=== PATIENT | female | born 1960 | race Caucasian/White ===

== ENCOUNTER → 2017-05-26 | Outpatient (CLI) | payer OTHER, SELFPAY ==
[~2017-05-26] MED LIST: ACET325 PO; ASCO500 PO; DOCU100 PO; DULO30 PO; GABA300; GABA600 PO; HYDR-86 PO; MELA3 PO; METO10 PO; Non-Pseudo Sinu10 MG PO; Norco 5-325 Ta1 EACH PO; ONDA4 PO; ONDA4ODT; Phillips'400 MG/5 M PO; St. John's Wor300 MG PO; Stool Softener100 MG PO; TRAZ50 PO; [UNRECOGNIZED DRUG - OTHER] PO; [UNRECOGNIZED DRUG - REMARK]
[2017-05-26 16:04] LABS: Albumin, Blood 3.3 g/dL (3.4-5.0); Albumin/Globulin Ratio 0.9 (0.8-1.8); Bilirubin, Total 0.5 mg/dL (0.1-1.0); Bun/Creatinine Ratio 8.8 (12.0-20.0); Calcium, Blood 8.8 mg/dL (8.5-10.1); Creatinine, Blood 1.02 mg/dL (0.40-1.00); Globulin, Blood 3.8 g/dL (2.2-4.0); Potassium, Blood 4.2 mmol/L (3.5-5.5); Total Protein, Blood 7.1 g/dL (6.4-8.2)
== END | disposition home or self-care (01) ==
LOC: LAB EV 15:50
PROVIDERS: Physician Assistant Surgical
DX: B35.9 Dermatophytosis, unspecified (principal)
CPT/HCPCS: 80053

== ENCOUNTER 2017-08-11 00:46 | Observation (INO) | payer OTHER ==
[~2017-08-11] VITALS: Ht 172.7 cm; Wt 103.4 kg
[~2017-08-11 00:46] MED LIST changes: -ACET325 PO; -ASCO500 PO; -DOCU100 PO; -DULO30 PO; -GABA300; -GABA600 PO; -HYDR-86 PO; -MELA3 PO; -METO10 PO; -Non-Pseudo Sinu10 MG PO; -ONDA4 PO; -ONDA4ODT; -Phillips'400 MG/5 M PO; -St. John's Wor300 MG PO; -Stool Softener100 MG PO; -TRAZ50 PO; -[UNRECOGNIZED DRUG - OTHER] PO; -[UNRECOGNIZED DRUG - REMARK]
[2017-08-11] MEDS ORDERED: ASCO500 PO (01:14)
[2017-08-11] MEDS ORDERED: St. John's Wor300 MG PO (01:14)
[2017-08-11 01:48] LABS: BASOPHILS ABSOLUTE AUTO 0.04 K/mm3 (0.00-0.23); BASOPHILS PERCENT AUTO 0 % (0-2); EOSINOPHILS ABSOLUTE AUTO 0.43 K/mm3 (0.00-0.68); EOSINOPHILS PERCENT AUTO 4 % (0-6); Hemoglobin 7.3 g/dL (11.5-16.0); IMMATURE GRAN ABSOLUTE AUTO 0.05 K/mm3 (0.00-0.10); IMMATURE GRAN PERCENT AUTO 1 % (0-1); LYMPHOCYTES ABSOLUTE AUTO 1.58 K/mm3 (0.84-5.20); LYMPHOCYTES PERCENT AUTO 14 % (21-46); MONOCYTES ABSOLUTE AUTO 0.46 K/mm3 (0.16-1.47); MONOCYTES PERCENT AUTO 4 % (4-13); Mean Corpuscular HGB 18.3 pg (26.0-34.0); Mean Corpuscular Volume 68 fL (80-100); Mean Platelet Volume 9.2 fL (9.1-12.4); NEUTROPHILS ABSOLUTE AUTO 8.46 K/mm3 (1.96-9.15); NEUTROPHILS PERCENT AUTO 77 % (41-73); Platelet Count 501 K/mm3 (150-400); RDW Coefficient Variation 19.9 % (11.7-14.2); RDW Standard Deviation 47.5 fL (35.1-46.3); Red Blood Cell Count 3.98 M/mm3 (3.80-5.20); White Blood Cell Count 11.02 K/mm3 (4.00-11.30)
[2017-08-11 02:09] LABS: Alanine Aminotransfer (ALT/SGP 17 U/L (12-78); Albumin, Blood 2.7 g/dL (3.4-5.0); Albumin/Globulin Ratio 0.6 (0.8-1.8); Alk Phos 96 U/L (50-136); Anion Gap 9 mmol/L (6-16); Aspartate Aminotrans (AST/SGOT 15 U/L (12-37); Bilirubin, Total 0.2 mg/dL (0.1-1.0); Blood Urea Nitrogen 15 mg/dL (8-24); Bun/Creatinine Ratio 16.1 (12.0-20.0); CO2, Blood 23 mmol/L (21-32); Calcium, Blood 8.5 mg/dL (8.5-10.1); Chloride, Blood 109 mmol/L (98-108); Creatinine, Blood 0.93 mg/dL (0.40-1.00); Globulin, Blood 4.3 g/dL (2.2-4.0); Glomerular Filtration Rate >60 (60-); Glucose, Blood 117 mg/dL (70-99); Potassium, Blood 3.8 mmol/L (3.5-5.5); Sodium, Blood 141 mmol/L (136-145); Troponin I <0.015 ng/mL (0.000-0.040)
[2017-08-11 03:03] LABS: Source, Urine Clean Catch
[2017-08-11 03:05] LABS: Bilirubin, Urine Neg (Neg); Blood, Urine Neg (Neg); Glucose Qualitative, Urine Neg (Neg); Ketones, Urine Neg (Neg); Leukocyte Esterase, Urine 1+ (Neg); Nitrite, Urine Neg (Neg); Protein, Urine Neg (Neg); Specific Gravity, Urine 1.015 (1.003-1.022); Urobilinogen, Urine NORM (Normal)
[2017-08-11 03:14] LABS: Appearance, Urine Clear (Clear); Bacteria Not Seen /hpf; Color, Urine Yellow (P-Yellow); Red Blood Cells, Urine Not Seen /hpf (0-2); Squamous Epithelial Cells Rare /hpf (Few); White Blood Cells, Urine Rare /hpf (0-5)
[2017-08-11 03:15] LABS: Mucus Light (0-Heavy)
[2017-08-11 04:37] LABS: RETICULOCYTE COUNT PERCENT 2.54 % (0.50-2.50)
[2017-08-11 04:54] LABS: Percent Saturation 6.5 % (15.0-50.0)
[2017-08-11 05:25] LABS: BASOPHILS ABSOLUTE AUTO 0.05 K/mm3 (0.00-0.23); BASOPHILS PERCENT AUTO 0 % (0-2); EOSINOPHILS ABSOLUTE AUTO 0.43 K/mm3 (0.00-0.68); EOSINOPHILS PERCENT AUTO 3 % (0-6); Hematocrit 28.4 % (33.0-51.0); Hemoglobin 7.7 g/dL (11.5-16.0); IMMATURE GRAN ABSOLUTE AUTO 0.08 K/mm3 (0.00-0.10); IMMATURE GRAN PERCENT AUTO 1 % (0-1); LYMPHOCYTES ABSOLUTE AUTO 1.55 K/mm3 (0.84-5.20); LYMPHOCYTES PERCENT AUTO 11 % (21-46); MONOCYTES ABSOLUTE AUTO 0.66 K/mm3 (0.16-1.47); MONOCYTES PERCENT AUTO 5 % (4-13); Mean Corpuscular HGB 18.2 pg (26.0-34.0); Mean Corpuscular HGB Conc 27.1 g/dL (31.5-36.5); Mean Corpuscular Volume 67 fL (80-100); Mean Platelet Volume 9.4 fL (9.1-12.4); NEUTROPHILS PERCENT AUTO 80 % (41-73); Platelet Count 410 K/mm3 (150-400); RDW Coefficient Variation 19.9 % (11.7-14.2); RDW Standard Deviation 46.9 fL (35.1-46.3); Red Blood Cell Count 4.22 M/mm3 (3.80-5.20); White Blood Cell Count 13.97 K/mm3 (4.00-11.30)
[2017-08-11 06:30] LABS: Alanine Aminotransfer (ALT/SGP 16 U/L (12-78); Albumin, Blood 2.7 g/dL (3.4-5.0); Albumin/Globulin Ratio 0.7 (0.8-1.8); Alk Phos 98 U/L (50-136); Anion Gap 7 mmol/L (6-16); Aspartate Aminotrans (AST/SGOT 15 U/L (12-37); Bilirubin, Total 0.3 mg/dL (0.1-1.0); Blood Urea Nitrogen 13 mg/dL (8-24); Bun/Creatinine Ratio 14.2 (12.0-20.0); CO2, Blood 25 mmol/L (21-32); Calcium, Blood 8.2 mg/dL (8.5-10.1); Chloride, Blood 108 mmol/L (98-108); Creatinine, Blood 0.91 mg/dL (0.40-1.00); Globulin, Blood 4.1 g/dL (2.2-4.0); Glomerular Filtration Rate >60 (60-); Glucose, Blood 110 mg/dL (70-99); Potassium, Blood 4.1 mmol/L (3.5-5.5); Sodium, Blood 140 mmol/L (136-145); Total Protein, Blood 6.8 g/dL (6.4-8.2)
[2017-08-13 05:58] LABS: BASOPHILS ABSOLUTE AUTO 0.03 K/mm3 (0.00-0.23); BASOPHILS PERCENT AUTO 0 % (0-2); EOSINOPHILS PERCENT AUTO 5 % (0-6); Hematocrit 28.3 % (33.0-51.0); Hemoglobin 7.7 g/dL (11.5-16.0); IMMATURE GRAN ABSOLUTE AUTO 0.05 K/mm3 (0.00-0.10); IMMATURE GRAN PERCENT AUTO 1 % (0-1); LYMPHOCYTES ABSOLUTE AUTO 1.93 K/mm3 (0.84-5.20); LYMPHOCYTES PERCENT AUTO 20 % (21-46); MONOCYTES ABSOLUTE AUTO 0.71 K/mm3 (0.16-1.47); MONOCYTES PERCENT AUTO 7 % (4-13); Mean Corpuscular HGB 18.5 pg (26.0-34.0); Mean Corpuscular HGB Conc 27.2 g/dL (31.5-36.5); Mean Corpuscular Volume 68 fL (80-100); Mean Platelet Volume 9.3 fL (9.1-12.4); NEUTROPHILS ABSOLUTE AUTO 6.35 K/mm3 (1.96-9.15); NEUTROPHILS PERCENT AUTO 66 % (41-73); Platelet Count 432 K/mm3 (150-400); RDW Coefficient Variation 20.9 % (11.7-14.2); Red Blood Cell Count 4.16 M/mm3 (3.80-5.20); White Blood Cell Count 9.57 K/mm3 (4.00-11.30)
[2017-08-13 06:15] LABS: Anion Gap 9 mmol/L (6-16); Blood Urea Nitrogen 8 mg/dL (8-24); Bun/Creatinine Ratio 9.4 (12.0-20.0); CO2, Blood 26 mmol/L (21-32); Calcium, Blood 8.6 mg/dL (8.5-10.1); Chloride, Blood 105 mmol/L (98-108); Creatinine, Blood 0.85 mg/dL (0.40-1.00); Glomerular Filtration Rate >60 (60-); Glucose, Blood 87 mg/dL (70-99); Sodium, Blood 140 mmol/L (136-145)
[2017-08-13] MEDS ORDERED: DOCU100 PO (11:00)
[2017-08-13] MEDS ORDERED: Phillips'400 MG/5 M PO (11:01)
[2017-08-23] MEDS ORDERED: MELA3 PO (16:44)
[2017-08-23] MEDS ORDERED: Stool Softener100 MG PO (16:45)
== END 2017-08-13 15:05 | disposition home or self-care (01) ==
LOC: ER 00:46 → MEDS 00:47 → ER 04:02 → MEDS 04:02 → ENPENDDIS 08-13 10:00 → MEDS 08-13 15:05
PROVIDERS: Emergency Medicine; Internal Medicine; Internal Medicine Gastroenterology
PROC: 0DBL8ZZ Excision of Transverse Colon, Via Natural or Artificial Opening Endoscopic (ICD-10-PCS; principal; 2017-08-12 11:00)
PROC: 0DBM8ZZ Excision of Descending Colon, Via Natural or Artificial Opening Endoscopic (ICD-10-PCS; principal; 2017-08-12 11:00)
DX: C18.4 Malignant neoplasm of transverse colon (principal); K63.5 Polyp of colon; K57.30 Diverticulosis of large intestine without perforation or abscess without bleeding; K64.8 Other hemorrhoids; D50.9 Iron deficiency anemia, unspecified; Z88.0 Allergy status to penicillin; Z91.040 Latex allergy status; Z88.8 Allergy status to other drugs, medicaments and biological substances; Z23 Encounter for immunization
CPT/HCPCS: 36415; 36430; 74177; 80048; 80053; 81001; 82378; 82728; 83540; 83550; 83605; 83690; 84484; 85025; 85045; 86850; 86900; 86901; 86920; 86923; 88305; 88341; 88342; 96361; 96374; 96375; 99285; C9113; G0008; G0378; J2405; J7030; J7120; P9016; Q2038; Q9967

== ENCOUNTER 2017-08-28 05:52 | Day surgery (SDC) | payer OTHER ==
[~2017-08-28] VITALS: Ht 172.7 cm; Wt 98.9 kg
[~2017-08-28 05:52] MED LIST changes: +ASCO500 PO; +DOCU100 PO; +MELA3 PO; +Phillips'400 MG/5 M PO; +St. John's Wor300 MG PO; +Stool Softener100 MG PO
[2017-08-28] MEDS ORDERED: ACET325 PO (06:38)
[2017-08-28] MEDS ORDERED: [UNRECOGNIZED DRUG - OTHER] PO (06:38)
[2017-08-28] MEDS ORDERED: [UNRECOGNIZED DRUG - REMARK] (06:39)
== END 2017-08-28 22:47 | disposition home or self-care (01) ==
LOC: ORSCMMR 05:52 → ORD 07:30 → ORSCMMR 22:47
PROVIDERS: Surgery
PROC: 0JH60WZ Insertion of Totally Implantable Vascular Access Device into Chest Subcutaneous Tissue and Fascia, Open Approach (ICD-10-PCS; principal; 2017-08-28 07:30)
DX: C18.4 Malignant neoplasm of transverse colon (principal); C77.2 Secondary and unspecified malignant neoplasm of intra-abdominal lymph nodes; C78.6 Secondary malignant neoplasm of retroperitoneum and peritoneum
CPT/HCPCS: 77001; 87081; C1788; J1642; J2250; J3010; J7120

== ENCOUNTER 2017-09-26 17:44 | Emergency (ER) | payer OTHER ==
[~2017-09-26] VITALS: Ht 172.7 cm; Wt 94.3 kg
[~2017-09-26 17:44] MED LIST changes: +ACET325 PO; +[UNRECOGNIZED DRUG - OTHER] PO; +[UNRECOGNIZED DRUG - REMARK]
[2017-09-26 18:52] LABS: BASOPHILS ABSOLUTE AUTO 0.03 K/mm3 (0.00-0.23); BASOPHILS PERCENT AUTO 1 % (0-2); EOSINOPHILS ABSOLUTE AUTO 0.27 K/mm3 (0.00-0.68); EOSINOPHILS PERCENT AUTO 5 % (0-6); Hematocrit 38.3 % (33.0-51.0); IMMATURE GRAN ABSOLUTE AUTO 0.01 K/mm3 (0.00-0.10); IMMATURE GRAN PERCENT AUTO 0 % (0-1); LYMPHOCYTES ABSOLUTE AUTO 1.56 K/mm3 (0.84-5.20); LYMPHOCYTES PERCENT AUTO 30 % (21-46); MONOCYTES ABSOLUTE AUTO 0.45 K/mm3 (0.16-1.47); MONOCYTES PERCENT AUTO 9 % (4-13); Mean Corpuscular HGB 24.6 pg (26.0-34.0); Mean Corpuscular HGB Conc 31.3 g/dL (31.5-36.5); Mean Corpuscular Volume 79 fL (80-100); NEUTROPHILS ABSOLUTE AUTO 2.81 K/mm3 (1.96-9.15); NEUTROPHILS PERCENT AUTO 55 % (41-73); NRBC ABSOLUTE 0.02 K/mm3 (0.00-0.02); NRBC Auto 0.4 /100 WBC (0.0-0.2); Platelet Count 222 K/mm3 (150-400); RDW Coefficient Variation 28.1 % (11.7-14.2); Red Blood Cell Count 4.87 M/mm3 (3.80-5.20); White Blood Cell Count 5.13 K/mm3 (4.00-11.30)
[2017-09-26] MEDS ORDERED: ONDA4 PO (18:59)
[2017-09-26] MEDS ORDERED: St. John's Wor300 MG PO (18:59)
[2017-09-26 19:14] LABS: Alanine Aminotransfer (ALT/SGP 61 U/L (12-78); Albumin, Blood 3.6 g/dL (3.4-5.0); Albumin/Globulin Ratio 0.8 (0.8-1.8); Alk Phos 154 U/L (50-136); Anion Gap 9 mmol/L (6-16); Aspartate Aminotrans (AST/SGOT 59 U/L (12-37); Bilirubin, Total 0.3 mg/dL (0.1-1.0); Blood Urea Nitrogen 13 mg/dL (8-24); Bun/Creatinine Ratio 14.3 (12.0-20.0); CO2, Blood 22 mmol/L (21-32); Calcium, Blood 9.3 mg/dL (8.5-10.1); Chloride, Blood 108 mmol/L (98-108); Creatinine, Blood 0.91 mg/dL (0.40-1.00); Globulin, Blood 4.4 g/dL (2.2-4.0); Glomerular Filtration Rate >60 (60-); Glucose, Blood 135 mg/dL (70-99); Potassium, Blood 3.6 mmol/L (3.5-5.5); Sodium, Blood 139 mmol/L (136-145); Troponin I <0.015 ng/mL (0.000-0.040)
[2017-09-26 21:33] LABS: Source, Urine Clean Catch
[2017-09-26 21:41] LABS: Bilirubin, Urine Neg (Neg); Blood, Urine Neg (Neg); Glucose Qualitative, Urine Neg (Neg); Ketones, Urine Neg (Neg); Leukocyte Esterase, Urine 2+ (Neg); Nitrite, Urine Neg (Neg); Protein, Urine 1+ (Neg); Specific Gravity, Urine 1.025 (1.003-1.022); Urobilinogen, Urine NORM (Normal)
[2017-09-26 21:48] LABS: Appearance, Urine Hazy (Clear); Color, Urine Yellow (P-Yellow); White Blood Cells, Urine 0-2 /hpf (0-5)
[2017-09-26 21:49] LABS: Amorphous Light ([, 0-Heavy]); Bacteria Few /hpf; Calcium Oxalate Crystals Mod /hpf; Hyaline Casts 0-2 /lpf (0-2); Mucus Light ([, 0-Heavy]); Red Blood Cells, Urine Not Seen /hpf (0-2); Squamous Epithelial Cells Rare /hpf (Few)
== END 2017-09-26 22:49 | disposition home or self-care (01) ==
LOC: ER 17:44
PROVIDERS: Emergency Medicine
DX: I95.1 Orthostatic hypotension (principal); Z91.048 Other nonmedicinal substance allergy status; Z88.0 Allergy status to penicillin; Z88.8 Allergy status to other drugs, medicaments and biological substances; Z91.040 Latex allergy status; Z79.899 Other long term (current) drug therapy
CPT/HCPCS: 36415; 71046; 80053; 81001; 84484; 85025; 87086; 93005; 93010; 96360; 99284; J7030

== ENCOUNTER 2017-10-02 10:23 | Day surgery (SDC) | payer OTHER, SELFPAY ==
[~2017-10-02 10:23] MED LIST changes: +ONDA4 PO
[2017-10-04] MEDS ORDERED: METO10 PO (14:57)
[2017-10-04] MEDS ORDERED: Non-Pseudo Sinu10 MG PO (14:58)
== END 2017-10-02 22:41 | disposition home or self-care (01) ==
LOC: RAD 10:23
DX: C18.4 Malignant neoplasm of transverse colon (principal); C78.6 Secondary malignant neoplasm of retroperitoneum and peritoneum; C77.2 Secondary and unspecified malignant neoplasm of intra-abdominal lymph nodes
CPT/HCPCS: 36598; Q9967

== ENCOUNTER 2017-10-09 08:46 | Day surgery (SDC) | END 2017-10-09 22:41 | disposition home or self-care (01) ==

== ENCOUNTER → 2018-05-20 | Outpatient (CLI) | payer OTHER ==
[~2018-05-20] MED LIST changes: +DULO30 PO; +GABA300; +GABA600 PO; +HYDR-86 PO; +METO10 PO; +Non-Pseudo Sinu10 MG PO; +ONDA4ODT; +TRAZ50 PO
[2018-05-20 16:35] LABS: Appearance, Urine Clear (Clear); Bilirubin, Urine Neg (Neg); Blood, Urine Neg (Neg); Color, Urine Yellow (P-Yellow); Glucose Qualitative, Urine Neg (Neg); Ketones, Urine Neg (Neg); Leukocyte Esterase, Urine 1+ (Neg); Nitrite, Urine Pos (Neg); Protein, Urine 2+ (Neg); Specific Gravity, Urine 1.015 (1.003-1.022); Urobilinogen, Urine NORM (Normal)
[2018-05-20 16:50] LABS: Red Blood Cells, Urine 0-2 /hpf (0-2); Squamous Epithelial Cells Few /hpf (Few)
[2018-05-20 16:51] LABS: Bacteria Few /hpf
== END | disposition home or self-care (01) ==
LOC: LAB SHORT 16:22 → LAB 16:22
PROVIDERS: Family Medicine
DX: N39.0 Urinary tract infection, site not specified (principal)
CPT/HCPCS: 81001; 87077; 87086; 87186

== ENCOUNTER 2018-09-12 07:09 | Day surgery (SDC) | payer OTHER ==
[~2018-09-12] VITALS: Ht 172.7 cm; Wt 99.1 kg
[~2018-09-12 07:09] MED LIST changes: +Percocet 5-3251 EACH PO
[2018-09-12] MEDS ORDERED: K-Dur20 MEQ PO (07:52)
== END 2018-09-12 09:20 | disposition home or self-care (01) ==
LOC: ORSCSDS 07:09
PROVIDERS: Surgery
PROC: 0DB68ZX Excision of Stomach, Via Natural or Artificial Opening Endoscopic, Diagnostic (ICD-10-PCS; principal; 2018-09-12 08:30)
PROC: 0DB58ZX Excision of Esophagus, Via Natural or Artificial Opening Endoscopic, Diagnostic (ICD-10-PCS; principal; 2018-09-12 08:30)
DX: R93.3 Abnormal findings on diagnostic imaging of other parts of digestive tract (principal); T18.2XXA Foreign body in stomach, initial encounter; F41.8 Other specified anxiety disorders; Z79.899 Other long term (current) drug therapy
CPT/HCPCS: 88305; 88342; J2704; J7120

== ENCOUNTER 2019-03-04 09:41 | Emergency (ER) | payer OTHER ==
[~2019-03-04] VITALS: Ht 172.7 cm; Wt 104.8 kg
[~2019-03-04 09:41] MED LIST changes: +K-Dur20 MEQ PO
[2019-03-04] MEDS ORDERED: HYDR1TAB94 PO (10:58)
== END 2019-03-04 11:07 | disposition home or self-care (01) ==
LOC: ER 09:41
DX: S82.62XA Displaced fracture of lateral malleolus of left fibula, initial encounter for closed fracture (principal); S93.602A Unspecified sprain of left foot, initial encounter; W01.0XXA Fall on same level from slipping, tripping and stumbling without subsequent striking against object, initial encounter; Z91.048 Other nonmedicinal substance allergy status; Z88.0 Allergy status to penicillin; Z88.8 Allergy status to other drugs, medicaments and biological substances; Z91.040 Latex allergy status; Z79.899 Other long term (current) drug therapy
CPT/HCPCS: 29515; 73610; 73630; 99283-25

== ENCOUNTER 2019-04-04 09:19 | Day surgery (SDC) | payer OTHER ==
[~2019-04-04] VITALS: Ht 172.7 cm; Wt 104.6 kg
[~2019-04-04 09:19] MED LIST changes: +HYDR1TAB94 PO
--- NOTE | 2019-04-04 10:24 | NUR ---
04/04/19 [facility] Radha Tamayo 1 RIGHT WRIST NO FLASH RIGHT HAND GOOD 2
== END 2019-04-04 11:20 | disposition home or self-care (01) ==
LOC: ORSCSDS 09:19
PROVIDERS: Surgery
PROC: 0DJD8ZZ Inspection of Lower Intestinal Tract, Via Natural or Artificial Opening Endoscopic (ICD-10-PCS; principal; 2019-04-04 10:45)
DX: Z85.038 Personal history of other malignant neoplasm of large intestine (principal); D64.9 Anemia, unspecified; F41.8 Other specified anxiety disorders; Z79.899 Other long term (current) drug therapy
CPT/HCPCS: J2704; J7120

== ENCOUNTER 2019-06-30 17:20 | Inpatient (IN) | payer OTHER ==
[~2019-06-30] VITALS: Ht 172.7 cm; Wt 109.8 kg
--- NOTE | 2019-07-04 08:50 | NUR ---
INTO [facility] ADMISSION STARTED TO UNIT. Ambulatory in Day Surgery History, Chart, Medications and Allergies reviewed before start of procedure.Lungs clear T/O to Auscultation. Patient confirms NPO status and agrees with scheduled surgery.
--- NOTE | 2019-07-05 05:10 | NUR ---
SHIFT SUMMARY POD 1 S/P OPEN ADEBAYO. PT A/OX4 WITH VSS. ALEXANDRA TO RUQ IN PLACE WITH SMALL AMOUNT OF SHADOWING. TOLERATING REGULAR DIET, DENIES N/V. PAIN MANAGED WITH 1 ROXICODONE. SANCHEZ PATENT AND DRAINING YELLOW URINE. IVF INFUSING PER ORDERS. PT CURRENTLY RESTING IN BED WITH CALL LIGHT IN REACH. WILL CONT TO MONITOR AND GIVE REPORT TO ONCOMING RN.
[2019-07-05 05:17] LABS: BASOPHILS ABSOLUTE AUTO 0.02 K/mm3 (0.00-0.23); BASOPHILS PERCENT AUTO 0 % (0-2); EOSINOPHILS ABSOLUTE AUTO 0.02 K/mm3 (0.00-0.68); EOSINOPHILS PERCENT AUTO 0 % (0-6); Hematocrit 39.8 % (33.0-51.0); Hemoglobin 12.3 g/dL (11.5-16.0); IMMATURE GRAN ABSOLUTE AUTO 0.05 K/mm3 (0.00-0.10); IMMATURE GRAN PERCENT AUTO 1 % (0-1); LYMPHOCYTES ABSOLUTE AUTO 1.21 K/mm3 (0.84-5.20); LYMPHOCYTES PERCENT AUTO 11 % (21-46); MONOCYTES ABSOLUTE AUTO 0.55 K/mm3 (0.16-1.47); MONOCYTES PERCENT AUTO 5 % (4-13); Mean Corpuscular HGB 29.2 pg (26.0-34.0); Mean Corpuscular HGB Conc 30.9 g/dL (31.5-36.5); Mean Platelet Volume 10.2 fL (9.1-12.4); NEUTROPHILS PERCENT AUTO 83 % (41-73); Platelet Count 286 K/mm3 (150-400); RDW Coefficient Variation 14.3 % (11.7-14.2); RDW Standard Deviation 49.2 fL (35.1-46.3); Red Blood Cell Count 4.21 M/mm3 (3.80-5.20); White Blood Cell Count 10.75 K/mm3 (4.00-11.30)
[2019-07-05 05:18] LABS: Mean Corpuscular Volume 95 fL (80-100)
[2019-07-05 05:40] LABS: Anion Gap 6 mmol/L (6-16); Blood Urea Nitrogen 12 mg/dL (8-24); Bun/Creatinine Ratio 12.1 (12.0-20.0); CO2, Blood 23 mmol/L (21-32); Chloride, Blood 107 mmol/L (98-108); Creatinine, Blood 0.99 mg/dL (0.40-1.00); Glomerular Filtration Rate >60 (60-); Glucose, Blood 106 mg/dL (70-99); Potassium, Blood 4.8 mmol/L (3.5-5.5); Sodium, Blood 136 mmol/L (136-145)
--- NOTE | 2019-07-05 17:52 | NUR ---
PT HAS BEEN STABLE THIS SHIFT. POD #1 OPEN ADEBAYO WITH HERNIA REPAIR AND LYSIS OF ADESIONS. PT UP TO CHAIR SEVERAL TIMES TODAY. MEDICATED WITH OXYCODONE AND TORADOL PER EMAR NEEDED. ENCOURAGING SPIROMETRY AND SPLINT COUGHING. PT HAS STARTED PASSING FLATUS. PAUL REGULAR DIET. VOID X1 POST SANCHEZ DC. CONT IV FLUIDS ORDERED. ALEXANDRA DRESSING TO MIDLINE WITH DRY DIME SIZED DRAINAGE. BINDER ON. PAS TO BLE. LABS TO REPEAT IN THE AM. PT CALLS APPROPRIATELY NEEDED.
--- NOTE | 2019-07-06 04:16 | NUR ---
POD 2 S/P OPEN ADEBAYO. PT VSS T/O NIGHT, ALEXANDRA DRESSING INTACT W/GOOD SEAL/SX, NO NEW DRNG NOTED. PT PAUL REG PO, NO C/O N/V, REP PASSING FLATUS. PAIN MGD PER EMAR W/REP RELIEF. PT VOIDING URINE W/O DIFFICULTY. PT AMB INDEP IN ROOM, IS USING CALL LIGHT FOR ASSISTANCE, WILL CONT TO MONITOR UNTIL REP GIVEN TO ONCOMING RN.
[2019-07-06 05:45] LABS: Anion Gap 7 mmol/L (6-16); Blood Urea Nitrogen 12 mg/dL (8-24); Bun/Creatinine Ratio 13.9 (12.0-20.0); CO2, Blood 21 mmol/L (21-32); Calcium, Blood 7.9 mg/dL (8.5-10.1); Chloride, Blood 109 mmol/L (98-108); Creatinine, Blood 0.87 mg/dL (0.40-1.00); Glomerular Filtration Rate >60 (60-); Glucose, Blood 92 mg/dL (70-99); Magnesium, Blood 1.7 mg/dL (1.6-2.4); Phosphorus, Blood 2.7 mg/dL (2.5-4.9); Potassium, Blood 4.7 mmol/L (3.5-5.5); Sodium, Blood 137 mmol/L (136-145)
--- NOTE | 2019-07-06 10:22 | NUR ---
ASSUMED CARE OF PT FROM ANTONIO DOWNS.
--- NOTE | 2019-07-06 17:02 | NUR ---
SUMMARY NO ACUTE CHANGES SINCE ASSUMING CARE OF PT FROM ANTONIO DOWNS. PT GETS UP INDEPENDENTLY IN ROOM. RESTED OFF AND ON T/O SHIFT. MEDICATED PER ORDERS FOR ABDOMINAL PAIN AND ONCE FOR WILLIAM. TOLERATING DIET. PT REPORTED HAD BM. CALL LIGHT IN REACH. PLEASANT AND COOPERATIVE.
--- NOTE | 2019-07-07 06:26 | NUR ---
POD 3 S/P OPEN ADEBAYO. PT VSS T/O NIGHT. ALEXANDRA DRESSING INTACT W/NO NEW DRNG. PT PAUL REG PO, NO C/O N/V, REP PASSING FLATUS. PAIN MGD W/TORADOL W/REP RELIEF. PT AMB INDEP IN HALLS, PAUL WELL. PT USING CALL LIGHT FOR ASSISTANCE. PLAN TO D/C HOME TODAY.
[2019-07-07] MEDS ORDERED: Percocet 5-3251 EACH PO (09:22)
== END 2019-07-07 10:03 | disposition home or self-care (01) | DRG 355 ==
LOC: SURS 07-04 07:59 → PRE IP 07-04 09:30 → SURS 07-04 13:11
PROVIDERS: ADMIT Surgery
PROC: 0FT40ZZ Resection of Gallbladder, Open Approach (ICD-10-PCS; principal; 2019-07-04 09:30)
PROC: 0WQF0ZZ Repair Abdominal Wall, Open Approach (ICD-10-PCS; 2019-07-04 09:30)
DX: K43.2 Incisional hernia without obstruction or gangrene (principal); K82.8 Other specified diseases of gallbladder
CPT/HCPCS: 36415; 80048; 83735; 84100; 85025; 87071; 87075; 87205; A9270; J0690; J1100; J1650; J1885; J2250; J2370; J2405; J2704; J3010; J7030; J7120

== ENCOUNTER → 2019-07-24 | Outpatient (CLI) | payer OTHER | END | disposition home or self-care (01) | LOC: LAB EV 18:18 → LAB SHORT 18:18 | DX: H05.012 Cellulitis of left orbit (principal) | CPT/HCPCS: 87070; 87077; 87147; 87186; 87205 ==

== ENCOUNTER 2020-11-14 00:37 | Inpatient (IN) | payer SELFPAY ==
[~2020-11-14] VITALS: Ht 172.7 cm; Wt 105.2 kg
[~2020-11-14 00:37] MED LIST changes: +Vibramycin100 MG PO
[2020-11-14 01:40] LABS: Source, Urine Clean Catch
[2020-11-14 01:42] LABS: Appearance, Urine Clear (Clear); Bilirubin, Urine Neg (Neg); Blood, Urine 1+ (Neg); Color, Urine Amber (P-Yellow); Glucose Qualitative, Urine Neg (Neg); Ketones, Urine 3+ (Neg); Leukocyte Esterase, Urine 1+ (Neg); Nitrite, Urine Pos (Neg); Protein, Urine 2+ (Neg); Specific Gravity, Urine 1.025 (1.003-1.022); Urobilinogen, Urine NORM (Normal)
[2020-11-14 01:50] LABS: BASOPHILS ABSOLUTE AUTO 0.04 K/mm3 (0.00-0.23); BASOPHILS PERCENT AUTO 0 % (0-2); EOSINOPHILS PERCENT AUTO 1 % (0-6); Hematocrit 49.5 % (33.0-51.0); IMMATURE GRAN ABSOLUTE AUTO 0.03 K/mm3 (0.00-0.10); IMMATURE GRAN PERCENT AUTO 0 % (0-1); LYMPHOCYTES ABSOLUTE AUTO 1.22 K/mm3 (0.84-5.20); LYMPHOCYTES PERCENT AUTO 13 % (21-46); MONOCYTES PERCENT AUTO 3 % (4-13); Mean Corpuscular HGB 29.9 pg (26.0-34.0); Mean Corpuscular HGB Conc 32.3 g/dL (31.5-36.5); Mean Corpuscular Volume 92 fL (80-100); Mean Platelet Volume 9.6 fL (9.1-12.4); NEUTROPHILS PERCENT AUTO 83 % (41-73); Platelet Count 247 K/mm3 (150-400); RDW Standard Deviation 46.9 fL (35.1-46.3); Red Blood Cell Count 5.36 M/mm3 (3.80-5.20); White Blood Cell Count 9.69 K/mm3 (4.00-11.30)
[2020-11-14 01:55] LABS: Bacteria Many /hpf; Hyaline Casts 0-2 /lpf (0-2); Red Blood Cells, Urine 0-2 /hpf (0-2); Squamous Epithelial Cells Few /hpf (Few)
[2020-11-14 02:06] LABS: Alanine Aminotransfer (ALT/SGP 42 U/L (12-78); Albumin, Blood 3.9 g/dL (3.4-5.0); Albumin/Globulin Ratio 0.9 (0.8-1.8); Alk Phos 172 U/L (50-136); Anion Gap 11 mmol/L (6-16); Aspartate Aminotrans (AST/SGOT 26 U/L (12-37); Bilirubin, Total 0.6 mg/dL (0.1-1.0); Blood Urea Nitrogen 13 mg/dL (8-24); CO2, Blood 19 mmol/L (21-32); Calcium, Blood 9.4 mg/dL (8.5-10.1); Chloride, Blood 109 mmol/L (98-108); Creatinine, Blood 0.87 mg/dL (0.40-1.00); Globulin, Blood 4.3 g/dL (2.2-4.0); Glomerular Filtration Rate >60 (60-); Glucose, Blood 160 mg/dL (70-99); Potassium, Blood 4.1 mmol/L (3.5-5.5); Sodium, Blood 139 mmol/L (136-145); Total Protein, Blood 8.2 g/dL (6.4-8.2)
--- NOTE | 2020-11-14 05:41 | NUR ---
RECEIVED REPORT FROM ANBAELLA ALVAREZ FROM ED. PT TO TRANSFER TO ROOM 11/SURGICAL.
[2020-11-14] MEDS ORDERED: CYMBALTA30 M2 PO (05:48)
--- NOTE | 2020-11-14 06:32 | NUR ---
PT ARRIVED FROM ED AT 0540AM PT DIAGNOSED FOR PARTIAL SMALL BOWEL OBSTRUCTION WITH HX COLON CA AND HX OF BOWEL OBSTRUCTION. PT AOX4. NPO PER DR. EDGE. PT DENIES NAUSEA AND VOMITING. REPORTS MINIMAL ABD PAIN, 2/10 PAIN LEVEL. ABD IS MILDLY DISTENDED, LAST BM YESTERDAY. NS INFUSING AT 75ML/HR. SHE TRANSFERED HERSELF FROM STRETCHER TO BED, INDEPENDENTLY. PT RECEIVED 2 COVID SHOT/VACCINE, COPY OF CARD ON CHART. PT DENIES N/T, BUT HAS CHRONIC NEUROPATHY. CALL LIGHT WITHING REACH. WILL PROVIDE REPORT TO ONCOMING NURSE. PATIENT IS CURRENTLY SLEEPING.
--- NOTE | 2020-11-14 17:10 | NUR ---
SHIFT SUMMARY PT IND IN ROOM UP TO BATHROOM AND VOIDING REGULARILY. BM AND FLATUS THIS AM, NONE THIS EVENING. PT HAD SOME EMESIS THIS AM, SHE REPORTS FROM USING MOUTH SWABS CAUSING HER GAG REFLEX. DENIED OTHERWISE. PT IS TOLERATING CLEAR LIQUIDS AT THIS TIME. PLAN IS TO CONTINUE ALLOWING BOWELS TO BECOME MORE ACTIVE.
--- NOTE | 2020-11-15 03:02 | NUR ---
EMESIS + NGT PT AWOKE WITH 900cc LIGHT BROWN/GREEN EMESIS. DR EDGE NOTIFIED AND NGT PLACED, PT TOLERATED WELL. 1100cc LIGHT BROWN/GREEN OUT, NOW TO LIS. PT NOW RESTING WITH CALL LIGHT IN REACH.
[2020-11-15 04:32] LABS: BASOPHILS ABSOLUTE AUTO 0.02 K/mm3 (0.00-0.23); BASOPHILS PERCENT AUTO 0 % (0-2); EOSINOPHILS ABSOLUTE AUTO 0.02 K/mm3 (0.00-0.68); EOSINOPHILS PERCENT AUTO 0 % (0-6); Hemoglobin 16.3 g/dL (11.5-16.0); IMMATURE GRAN ABSOLUTE AUTO 0.07 K/mm3 (0.00-0.10); IMMATURE GRAN PERCENT AUTO 1 % (0-1); LYMPHOCYTES PERCENT AUTO 12 % (21-46); MONOCYTES ABSOLUTE AUTO 0.58 K/mm3 (0.16-1.47); MONOCYTES PERCENT AUTO 5 % (4-13); Mean Corpuscular HGB 30.5 pg (26.0-34.0); Mean Corpuscular HGB Conc 32.6 g/dL (31.5-36.5); Mean Corpuscular Volume 94 fL (80-100); Mean Platelet Volume 9.4 fL (9.1-12.4); NEUTROPHILS ABSOLUTE AUTO 10.57 K/mm3 (1.96-9.15); NEUTROPHILS PERCENT AUTO 83 % (41-73); Platelet Count 303 K/mm3 (150-400); RDW Coefficient Variation 14.5 % (11.7-14.2); RDW Standard Deviation 49.1 fL (35.1-46.3); Red Blood Cell Count 5.35 M/mm3 (3.80-5.20); White Blood Cell Count 12.76 K/mm3 (4.00-11.30)
[2020-11-15 04:52] LABS: Alanine Aminotransfer (ALT/SGP 59 U/L (12-78); Albumin, Blood 3.8 g/dL (3.4-5.0); Albumin/Globulin Ratio 0.9 (0.8-1.8); Alk Phos 157 U/L (50-136); Anion Gap 7 mmol/L (6-16); Aspartate Aminotrans (AST/SGOT 35 U/L (12-37); Bilirubin, Total 0.9 mg/dL (0.1-1.0); Blood Urea Nitrogen 14 mg/dL (8-24); Bun/Creatinine Ratio 15.7 (12.0-20.0); CO2, Blood 21 mmol/L (21-32); Calcium, Blood 9.3 mg/dL (8.5-10.1); Chloride, Blood 111 mmol/L (98-108); Creatinine, Blood 0.89 mg/dL (0.40-1.00); Globulin, Blood 4.3 g/dL (2.2-4.0); Glomerular Filtration Rate >60 (60-); Glucose, Blood 121 mg/dL (70-99); Potassium, Blood 4.2 mmol/L (3.5-5.5); Sodium, Blood 139 mmol/L (136-145); Total Protein, Blood 8.1 g/dL (6.4-8.2)
--- NOTE | 2020-11-15 05:22 | NUR ---
PT A/OX4. VSS ON RA. PT HAD LARGE EMESIS 2X, ZOFRAN GIVEN. NOTIFIED AND NG TUBE TO SUCTION ORDERED AND PLACED. PT HAVING A DIFFICULT TIME TOLERATING NG TUBE, HURRICANE SPRAY GIVEN AND EFFECTIVE. IV FLUIDS INFUSING. UP TO TOILET W/ SBA.SLEEPING B/W CARE. PT UPSET ABOUT HEALTH, LOTS OF EMOTIONAL SUPPORT GIVEN.
--- NOTE | 2020-11-15 19:41 | NUR ---
SHIFT SUMMARY PATIENT ALERT AND ORIENTED THROUGHOUT SHIFT. NPO AND NG TUBE IN PLACE TO LOW INTERMITTENT SUCTION. PATENT AND DRAINING. PATIENT TOLERATING ICE CHIPS FOR COMFORT WITH PRN HURRICAINE THROAT SPRAY. INDEPENDENT IN ROOM. NO NAUSEA OR VOMITING THIS SHIFT. PLAN IS TO CLAMP NG TUBE 11/16/20 AND SLOWLY ADVANCE DIET. REPORT GIVEN TO GRINDER SET UP OPERATOR EXTERNAL RN.
--- NOTE | 2020-11-16 04:08 | NUR ---
SHIFT SUMMARY: PT A&O X4. NGT IN PLACE TO LOW INTERMITTENT SUCTION. DRAINING A MODERATE AMOUNT. PT UNCOMFORTABLE WITH NGT IN PLACE. MEDICATED WITH HURRICANE SPRAY FOR THROAT DISCOMFORT. PT REPORTS ABD IS SORE FROM VOMITTING BUT NOT REQUIRING PAIN MEDICATION. DENIES N/V. PT INDEPENDENT TO BSC. VOIDING AND HAVING LIQUID BM'S. PT DENIES PASSING FLATUS. IVF INFUSING PER EMAR.
[2020-11-16 04:41] LABS: Anion Gap 6 mmol/L (6-16); Blood Urea Nitrogen 14 mg/dL (8-24); Bun/Creatinine Ratio 15.9 (12.0-20.0); CO2, Blood 24 mmol/L (21-32); Calcium, Blood 8.8 mg/dL (8.5-10.1); Chloride, Blood 111 mmol/L (98-108); Creatinine, Blood 0.88 mg/dL (0.40-1.00); Glomerular Filtration Rate >60 (60-); Glucose, Blood 86 mg/dL (70-99); Sodium, Blood 141 mmol/L (136-145)
--- NOTE | 2020-11-16 19:47 | NUR ---
NGT CLAMPED: PT REPORT NO N/V, HAS HAD 2 SMALL BM'S, DENIES FLATUS. DR. MARROQUIN MADE AWARE AND NGT CLAMPED AT ABOUT 1430. DIET ADVANCED TO CLEAR LIQ AND PT ASKED TO GO SLOW WITH PO INTAKE. WILL CTM.
--- NOTE | 2020-11-16 19:50 | NUR ---
NAUSEA: PT CALLED THIS RN REPORTING NAUSEA AT ABOUT 1700. NGT CONNECTED AND TURNED TO LIS WITHOUT ANY OUTPUT, ZOFRAN GIVEN. PT CONTINUED TO C/O NAUSEA. NGT IRRIGATED WITH WATER 60ML AND 200ML OF GREEN OUTPUT DRAINED WITH SUCTION. PT THEN REPORTED RELIEF OF NAUSEA. AN ADDITIONAL 400ML DRAINED FROM NGT BY [address] MARROQUIN MADE AWARE WELL NOC RNKEKE.
--- NOTE | 2020-11-17 04:04 | NUR ---
SHIFT SUMMARY PT AOX4. ADMITTED FOR PARTIAL BOWEL OBSTRUCTION. NO ACUTE CHANGES OVERNIGHT. NG TUBE IN PLACED IN LIS. NG TUBE WITH AN OUTPUT OF 400ML, WITH LIGHT BROWN LIQUID. PT SLEPT T/O SHIFT. SHE HAS BEEN FEELING COMFORTBALE, DENIES PAIN, NAUSEA AND VOMITING. LR INFUSING. PT VOIDING, HAD 550ML SINCE 1919. USE CALL LIGHT APPROPRIATELY. SHE HAS NOT BEEN TAKEN ANYTING BY MOUTH T/O SHIFT. CALL LIGHT WITHIN REACH. WILL PROVIDE REPORT TO ONCOMING NURSE.
--- NOTE | 2020-11-17 14:28 | NUR ---
SHIFT SUMMARY: PARTIAL BOWEL OBSTRUCTION - NONSURGICAL PATIENT IS ALERT AND ORIENTED X4. VS ARE WNL AND IS ON RA. PATIENT DENIES PAIN SO FAR THIS SHIFT. SHE HAS BEEN TOLERTING PO INTAKE, VOIDING, AND HAD A SMALL BM EARLIER TODAY. PATIENT REPORTS "I'M FEELING MORE HUMAN TODAY!". NG TUBE WAS TAKEN OUT TODAY AND SHE HAS HAD NO NAUSEA OR VOMITING. PATIENT'S DIET WAS CHANGED TO FULL LIQUIDS FOR DINNER TONIGHT TO MAKE SURE SHE IS ABLE TO TOLERATE IT. PATIENT CALLS APPROPRIATELY. CALL LIGHT WITHIN REACH. THE PLAN IS TO POSSIBLY DISCHARGE HOME TOMORROW IF PATIENT IS ABLE TO TOLERATE PO INTAKE.
--- NOTE | 2020-11-18 04:38 | NUR ---
SHIFT SUMMARY ADMITTED FOR PARTIAL BOWEL OBSTRUCTION, NON SURGICAL. AOX4. VSS. PT DENIES ABD PAIN, NAUSEA AND VOMITING. TOLERATING PO INTAKE/FULL LIQ DIET. INDEPENDENT IN ROOM. VOIDING WELL, AND HAD A BM LAST NIGHT. SLEPT T/O THE NIGHT. PLAN TO DISCHARGE TODAY IF SHE CAN TOLERATE PO INTAKE PER DAY SHIFT NURSE REPORT. CALL LIGHT WITHIN REACH. WILL PROVIDE REPORT TO ONCOMING AM NURSE.
[2020-11-18 04:47] LABS: Hematocrit 44.4 % (33.0-51.0); Hemoglobin 15.1 g/dL (11.5-16.0); Mean Corpuscular HGB 30.6 pg (26.0-34.0); Mean Corpuscular Volume 90 fL (80-100); Mean Platelet Volume 9.4 fL (9.1-12.4); Platelet Count 237 K/mm3 (150-400); RDW Coefficient Variation 13.5 % (11.7-14.2); RDW Standard Deviation 44.5 fL (35.1-46.3); Red Blood Cell Count 4.94 M/mm3 (3.80-5.20); White Blood Cell Count 9.12 K/mm3 (4.00-11.30)
[2020-11-18 05:01] LABS: Anion Gap 10 mmol/L (6-16); Blood Urea Nitrogen 11 mg/dL (8-24); Bun/Creatinine Ratio 12.2 (12.0-20.0); CO2, Blood 26 mmol/L (21-32); Calcium, Blood 9.2 mg/dL (8.5-10.1); Chloride, Blood 98 mmol/L (98-108); Glomerular Filtration Rate >60 (60-); Glucose, Blood 113 mg/dL (70-99); Potassium, Blood 3.1 mmol/L (3.5-5.5); Sodium, Blood 134 mmol/L (136-145)
--- NOTE | 2020-11-18 17:26 | NUR ---
SUMMARY PT DENIES ANY PAIN OR NAUSEA AT THIS TIME. TAKING SMALL AMOUNTS OF CLEAR LIQUID. PT REPORTS LARGE VOLUME LIQUID BROWN STOOLS
--- NOTE | 2020-11-19 05:58 | NUR ---
SHIFT SUMMARY NO ACUTE CHANGES OVERNIGHT. PATIENT HAS BEEN FEELING SOME PAIN AND ACHE IN HER UMBILICAL REGION. PAIN MANAGED WITH FENTANYL 25MCG, MEDICATED TWICE - ONE AT BEDTIME AND THIS MORNING. PT ALSO REPORT NAUSEA, MEDICATED WITH ZOFRAN TWICE T/O SHIFT. INDEPENDENT IN ROOM. PT SLEPT WELL OVERNIGHT DENIES BM. VOIDING ADEQUATELY BUT REPORTS THAT URINE APPEARS TO BE TEA COLOR. PT DENIES PAIN AND BURNING WHEN URINATING. PLAN: PT TO SEE DR. MCNULTY TODAY FOR REEVALUATION. CALL LIGHT WITHIN REACH. WILL PROVIDE REPORT TO ONCOMING NURSE.
--- NOTE | 2020-11-19 16:23 | NUR ---
PATIENT CAME BACK FROM PACU TODAY 11/19/20 AT AROUND 1623. POD 0 HERNIA REPAIR PATIENT IS DROWSY BUT WILL RESPOND TO VERBAL STIMULI. VS ARE WNL AND IS ON 2L OXYGEN NC WITH OXYGEN SATS >90%. PATIENT HAS A ALEXANDRA DRESSING DOWN THE MIDLINE THAT IS C/D/I. HER MICHELLE DRAIN IS ON HER RLQ AND HAS A SMALL AMOUNT OF RED OUTPUT IN THE BULB. BULB IS COMPRESSED AT THIS TIME. PATIENT HAS FENTANYL PAY STATION DEPARTMENT MANAGER AND RATES HER PAIN A 1/10 AT THIS TIME. CALL LIGHT IS WITHIN REACH.
--- NOTE | 2020-11-20 07:35 | NUR ---
SUMMARY PT TOLERATING SIPS AND CHIPS.OOB FOR FOR BSC AND VOIDING WITHOUT DIFF.
[2020-11-20 09:03] LABS: Hematocrit 41.2 % (33.0-51.0); Hemoglobin 13.7 g/dL (11.5-16.0)
[2020-11-20 09:28] LABS: Anion Gap 5 mmol/L (6-16); Blood Urea Nitrogen 10 mg/dL (8-24); Bun/Creatinine Ratio 10.6 (12.0-20.0); CO2, Blood 28 mmol/L (21-32); Calcium, Blood 8.2 mg/dL (8.5-10.1); Chloride, Blood 101 mmol/L (98-108); Creatinine, Blood 0.94 mg/dL (0.40-1.00); Glomerular Filtration Rate >60 (60-); Glucose, Blood 93 mg/dL (70-99); Potassium, Blood 3.6 mmol/L (3.5-5.5); Sodium, Blood 134 mmol/L (136-145)
--- NOTE | 2020-11-20 11:24 | NUR ---
PT'S HR INCREASED TO 114. PT DENIES SYMPTOMS. DENIES CP AND SHORTNESS OF BREATH. HEART SOUNDS ARE REGULAR. OTHER VSS. WILL CONTINUE TO MONITOR.
--- NOTE | 2020-11-20 14:19 | NUR ---
TACHYCARDIA JEFFREY NUNEZA REPORTED PT'S HR INCREASED TO 160 WHEN OOB AT APPROXIMATELY 1330. PT WAS ASSESSED BY THIS RN. PT DENIED SHORTNESS OF BREATH AND CHEST PAIN. RR INCREASED, PT REPORTED SHE BECOMES SHORT OF BREATH WITH ACTIVITY SINCE SURGERY. CONTINUOUS OX MONITOR SHOWS HR OF 135-142. MANUALLY CHECKED PULSE AND HR >120 PER MANUAL CHECK BUT DIFFICULT TO COUNT R/T SPEED. DR. PITT NOTIFIED. TELE PLACED, EKG COMPLETED AND FLUIDS INCREASED TO 150ML PER HOUR PER DR. PITT. HR MAINTAINING 130'S AT THIS TIME PER TELE MONITOR. PT CONTINUES TO BE ASYMPTOMATIC. WILL CONTINUE TO MONITOR.
--- NOTE | 2020-11-20 16:45 | NUR ---
SHIFT SUMMARY PT IS POD#1 FOR HERNIA REPAIR WITH MESH. PAIN WAS ELEVATED THIS MORNING AND PT WAS HAVING DIFFICULTY MANAGING PAIN WHEN SHE FELL ASLEEP. DR. MCNULTY CHANGED HEALTH CARE LEGAL ASSISTANT TO CONTINUOUS AND PAIN MANAGEMENT HAS IMPROVED. PT HAS BEEN TACHYCARDIC THIS AFTERNOON, IV FLUIDS INCREASED FOR HYDRATION. PT REMAINS TACHYCARDIC IN THE 120'S, DR. PITT IS AWARE. PT IS A 1 ASSIST FOR TRANSFERS. WILL MONITOR UNTIL REPORT TO NOC ANTONIO.
--- NOTE | 2020-11-20 18:24 | NUR ---
ORDER PLACED FOR H&H PER DR. PITT. DR. PITT NOTIFIED THAT HR REMAINS IN THE 120'S BUT PT REMAINS ASYMPTOMATIC. CONTINUING FLUIDS AND WILL AWAIT H&H RESULTS.
[2020-11-20 22:00] LABS: Hematocrit 37.1 % (33.0-51.0); Hemoglobin 12.2 g/dL (11.5-16.0)
--- NOTE | 2020-11-21 07:36 | NUR ---
SUMMARY PT REPORTS SHSE SLEPT WELL LAST NIGHT AND IS PLEASED WITH PAIN CONTROL.
--- NOTE | 2020-11-21 11:21 | NUR ---
TACHYCARDIA PT'S HR INCREASED TO 146 WHEN STANDING AND TRANSFERING TO THE RECLINER. PT REMAINED ASYMPTOMATIC. AFTER RESTING HR RETURNED TO 114.
--- NOTE | 2020-11-21 19:25 | NUR ---
SHIFT SUMMARY PT IS POD#2 FOR HERNIA REPAIR. BENZENE WASHER DC'D AND PT TRANSITIONED TO PO PAIN MEDICATION. BOWEL SOUNDS CONTINUE TO BE HYPOACTIVE AND PT DENIES PASSING FLATUS. SHE IS TOLERATING CLEAR LIQUIDS WITHOUT NAUSEA. PT HAS BEEN ENCOURAGED TO SIT UP IN THE CHAIR AND AMBULATE TO THE BATHROOM. PT HAS BEEN TACHYCARDIC T/O THE DAY AND HR INCREASES TO 140 WITH ACTIVITY. PT HAS ORANGE URINE AND HAS HAD LOW BUT ADEQUATE OUTPUT, DR. MCNULTY NOTIFIED. ENCOURAGED FLUIDS. PT REMAINS ON 1L O2. SHE WAS UNABLE TO MAINTAIN O2 SATURATION >90% WHILE ON RA AND WAS PLACED BACK 1L O2. PT ENCOURAGED TO USE INCENTIVE SPIROMETER. REPORT GIVEN TO JO-ANN ALVAREZ.
--- NOTE | 2020-11-21 22:45 | NUR ---
SUSTAINED HEART RATE OF 140 NOTED PER TELE.I NOTIFIED CORI AND DISCUSSED VS /IV FLUIDS,LABS SINCE FIRST PLACED ON TELE.IV FLUID BOLUS OVER 2 HRS ORDERED,THEN TO RESUME 50 ML/HR.
[2020-11-22 04:28] LABS: BASOPHILS ABSOLUTE AUTO 0.03 K/mm3 (0.00-0.23); BASOPHILS PERCENT AUTO 0 % (0-2); EOSINOPHILS ABSOLUTE AUTO 0.16 K/mm3 (0.00-0.68); EOSINOPHILS PERCENT AUTO 2 % (0-6); Hematocrit 29.5 % (33.0-51.0); Hemoglobin 9.7 g/dL (11.5-16.0); IMMATURE GRAN ABSOLUTE AUTO 0.09 K/mm3 (0.00-0.10); IMMATURE GRAN PERCENT AUTO 1 % (0-1); LYMPHOCYTES ABSOLUTE AUTO 2.44 K/mm3 (0.84-5.20); LYMPHOCYTES PERCENT AUTO 23 % (21-46); MONOCYTES ABSOLUTE AUTO 0.83 K/mm3 (0.16-1.47); MONOCYTES PERCENT AUTO 8 % (4-13); Mean Corpuscular HGB 30.5 pg (26.0-34.0); Mean Corpuscular HGB Conc 32.9 g/dL (31.5-36.5); Mean Corpuscular Volume 93 fL (80-100); Mean Platelet Volume 9.8 fL (9.1-12.4); NEUTROPHILS ABSOLUTE AUTO 7.24 K/mm3 (1.96-9.15); NEUTROPHILS PERCENT AUTO 67 % (41-73); Platelet Count 243 K/mm3 (150-400); RDW Coefficient Variation 13.7 % (11.7-14.2); RDW Standard Deviation 46.7 fL (35.1-46.3); Red Blood Cell Count 3.18 M/mm3 (3.80-5.20); White Blood Cell Count 10.79 K/mm3 (4.00-11.30)
[2020-11-22 04:45] LABS: Anion Gap 3 mmol/L (6-16); Blood Urea Nitrogen 6 mg/dL (8-24); CO2, Blood 32 mmol/L (21-32); Calcium, Blood 8.4 mg/dL (8.5-10.1); Chloride, Blood 96 mmol/L (98-108); Creatinine, Blood 0.75 mg/dL (0.40-1.00); Glomerular Filtration Rate >60 (60-); Glucose, Blood 102 mg/dL (70-99); Magnesium, Blood 1.8 mg/dL (1.6-2.4); Phosphorus, Blood 2.2 mg/dL (2.5-4.9); Potassium, Blood 3.9 mmol/L (3.5-5.5); Sodium, Blood 131 mmol/L (136-145)
--- NOTE | 2020-11-22 05:36 | NUR ---
PT A/O, HEART RATE DECREASED TO 106 CURRENTLY.BOLUS WAS COMPLETED AND PT HAS IVF RATE OF 50/HR.ALSO, URINE KETTLE HAND IN COLOR.HOWEVER, PTS SATS ON R/A 89 % AND REPORTS HAVING SOME SOB AT HOME FOR APPROX 1 MO PRIOR TO BEING HOSPITALIZED.ALSO NOW REPORTS MILD SOB WHEN ON R/A.H/H TRENDING DOWN.PT DENIES MORE THAN SLIGHT ABD DISCOMFORT AT PRESENT.I CALLED DR MCNULTY AND ADVISED OF ABOVE.HE VERBALIZED THAT HE WILL FURTHER REVIEW RECORDS AND KEARA BE PUTTING NEW ORDERS IN.
--- NOTE | 2020-11-22 07:36 | NUR ---
SUMMARY CT SCAN HAS BEEN COMPLETED. PT RESTING IN ROOM.PAS ON BILAT,DISCUSSED WITH PT SAFETY AND NEED TO MARGO FOR ASSIST FOR OOB,BSC AT THIS POINT. PT AGREES.
--- NOTE | 2020-11-22 17:37 | NUR ---
SHIFT SUMMARY PT IS A/O X4, SBA IN ROOM. PT HAS CONTINUED TO HAVE TACHYCARDIA TODAY, HOWEVER IT DOES SEEM TO BE IMPROVING THROUGHOUT THE DAY. PT WORKED WITH THERAPY TODAY AND WAS ABLE TO AMBULATE IN HALLWAY. IV FLUIDS HAVE BEEN INFUSING T/O THE SHIFT. MICHELLE AND ALEXANDRA IN PLACE WNL. PT UP TO CHAIR MOST OF THE SHIFT. TOLERATING CLEAR LIQUIDS W/O NAUSEA. REPORTS 3 BM'S TODAY AFTER SUPPOSITORY.
[2020-11-23 05:38] LABS: BASOPHILS ABSOLUTE AUTO 0.02 K/mm3 (0.00-0.23); BASOPHILS PERCENT AUTO 0 % (0-2); EOSINOPHILS ABSOLUTE AUTO 0.19 K/mm3 (0.00-0.68); EOSINOPHILS PERCENT AUTO 3 % (0-6); Hemoglobin 8.9 g/dL (11.5-16.0); IMMATURE GRAN ABSOLUTE AUTO 0.06 K/mm3 (0.00-0.10); IMMATURE GRAN PERCENT AUTO 1 % (0-1); LYMPHOCYTES ABSOLUTE AUTO 2.08 K/mm3 (0.84-5.20); LYMPHOCYTES PERCENT AUTO 27 % (21-46); MONOCYTES ABSOLUTE AUTO 0.71 K/mm3 (0.16-1.47); MONOCYTES PERCENT AUTO 9 % (4-13); Mean Corpuscular HGB 29.9 pg (26.0-34.0); Mean Corpuscular HGB Conc 31.8 g/dL (31.5-36.5); Mean Corpuscular Volume 94 fL (80-100); Mean Platelet Volume 9.8 fL (9.1-12.4); NEUTROPHILS ABSOLUTE AUTO 4.59 K/mm3 (1.96-9.15); NEUTROPHILS PERCENT AUTO 60 % (41-73); Platelet Count 258 K/mm3 (150-400); RDW Coefficient Variation 14.1 % (11.7-14.2); RDW Standard Deviation 47.9 fL (35.1-46.3); Red Blood Cell Count 2.98 M/mm3 (3.80-5.20); White Blood Cell Count 7.65 K/mm3 (4.00-11.30)
[2020-11-23 06:01] LABS: Albumin, Blood 2.2 g/dL (3.4-5.0); Anion Gap 5 mmol/L (6-16); Blood Urea Nitrogen 4 mg/dL (8-24); Bun/Creatinine Ratio 5.6 (12.0-20.0); CO2, Blood 30 mmol/L (21-32); Calcium, Blood 8.4 mg/dL (8.5-10.1); Chloride, Blood 99 mmol/L (98-108); Creatinine, Blood 0.72 mg/dL (0.40-1.00); Ferritin, Serum 184 ng/mL (8-252); Glomerular Filtration Rate >60 (60-); Glucose, Blood 97 mg/dL (70-99); Iron Serum 31 ug/dL (50-170); Percent Saturation 12.6 % (15.0-50.0); Phosphorus, Blood 3.6 mg/dL (2.5-4.9); Potassium, Blood 3.6 mmol/L (3.5-5.5); Sodium, Blood 134 mmol/L (136-145); Total Iron Binding Capacity 247 ug/dL (250-450)
--- NOTE | 2020-11-23 06:23 | NUR ---
PT A/OX4. SINUS TACH ON TELE. RESTING HR 95-100BPM. HR AT 120-135BPM WHEN AMBULATING. PT C/O KINSEY. SPO2 >2L. IVF INFUSING AND TOLERATING WELL. NORCO GIVEN FOR PAIN W/ GOOD EFFECT. SLEEPING B/W CARE. UP TO TOILET W/ SBA/HELP W/ LINES. USING CALL LIGHT TO MAKE NEEDS KNOWN.
--- NOTE | 2020-11-23 08:07 | NUR ---
MICHELLE DRAIN REMOVED BY DR. MCNULTY. IV FLUIDS DC'D AND DIET ADVANCED TO FULL LIQUIDS.
--- NOTE | 2020-11-23 17:24 | NUR ---
SHIFT SUMMARY PT HAS BEEN A/O X4, IND IN ROOM. TOLERATING FULL LIQUIDS, HAVING BM'S, AND VOIDING. PT HAS WORKED WITH THERAPY AND AMBULATED IN HALLWAY. PT HAS NOT C/O PAIN TODAY. MICHELLE WAS REMOVED THIS MORNING; ALEXANDRA STILL IN PLACE WNL. O2 WEANED DOWN TO 1L TODAY. PT RESTING IN BED AT THIS TIME, CALL LIGHT IN REACH.
--- NOTE | 2020-11-24 04:07 | NUR ---
SHIFT SUMMARY: PT POD#5 FOR A HERNIA REPAIR. NO ACUTE CHANGES THIS SHIFT. MIDLINE ALEXANDRA INTACT AND COMPRESSED. PREVIOUS MICHELLE SITE C/D/I WITH GAUZE DRESSING. PT HAVING LIQUID BM'S THIS SHIFT. REPORTS PAIN WHILE PASSING FLATUS. MEDICATED WITH ORAL PAIN MEDICATION PER EMAR. PT INDEPENDENT IN ROOM. SOB AND TACHYCARDIC WHILE AMBULATING TO BATHROOM. HR WILL INCREASE TO 130'S WITH ACTIVITY. 90-100 AT REST. PT DENIES CP. PULSE OX IN PLACE.
[2020-11-24] MEDS ORDERED: HYDACE10B PO (09:22)
--- NOTE | 2020-11-24 10:13 | NUR ---
DISCHARGE NOTE: PATIENT WAS EDUCATED ON DISCHARGE INSTRUCTIONS. SHE VERBALIZED UNDERSTANDING OF INSTRUCTIONS. HARD PERSCRIPTION IS IN THE INSTRUCTION FOLDER. SHE IS ALERT AND ORIENTED X4. VS ARE WNL AND IS ON RA. PAIN IS MANAGED WITH PO NARCOTICS. PATIENT MIDLINE INCISION HAS ADHESIVE DRESSING THAT IS C/D/I. PATIENT IS VOIDING AND HAVING BM'S. SHE IS TOLERATING PO INTAKE. IV WAS TAKEN OUT AND WAS WNL. SHE IS DRESSED AND HAS HER ITEMS GATHERED. SHE IS CURRENTLY WAITING FOR HER DAUGHTER AND THEN WILL BE WHEELCHAIRED DOWN TO THE DAUGHTERS CAR.
== END 2020-11-24 10:25 | disposition home or self-care (01) | DRG 353 ==
LOC: ER 00:37 → SURS 00:38 → ER 04:21 → SURS 04:21
PROVIDERS: Internal Medicine; Student in an Organized Health Care Education/Training Program; Surgery; ADMIT Internal Medicine
PROC: 0WUF0JZ Supplement Abdominal Wall with Synthetic Substitute, Open Approach (ICD-10-PCS; principal; 2020-11-19 10:15)
DX: K43.6 Other and unspecified ventral hernia with obstruction, without gangrene (principal); J96.01 Acute respiratory failure with hypoxia; N39.0 Urinary tract infection, site not specified; D72.829 Elevated white blood cell count, unspecified; E87.6 Hypokalemia; R00.0 Tachycardia, unspecified; D64.89 Other specified anemias; D63.8 Anemia in other chronic diseases classified elsewhere; G62.9 Polyneuropathy, unspecified; Z88.2 Allergy status to sulfonamides; Z88.0 Allergy status to penicillin; Z88.8 Allergy status to other drugs, medicaments and biological substances; Z91.048 Other nonmedicinal substance allergy status; Z88.1 Allergy status to other antibiotic agents; Z91.040 Latex allergy status; Z79.899 Other long term (current) drug therapy; Z85.038 Personal history of other malignant neoplasm of large intestine; Z90.49 Acquired absence of other specified parts of digestive tract; Z90.710 Acquired absence of both cervix and uterus; Z98.890 Other specified postprocedural states; Z90.89 Acquired absence of other organs; Z92.21 Personal history of antineoplastic chemotherapy
CPT/HCPCS: 36415; 71260; 74018; 74177; 80048; 80053; 80069; 81001; 82728; 83540; 83550; 83690; 83735; 84100; 85014; 85018; 85025; 85027; 87077; 87086; 87186; 93005; 93010; 94762; 96372; 96374; 96375; 96376; 97110; 97116; 97162; 97530; 99285-25; A9270; C1751; C1781; G0378; J0690; J1100; J1170; J1200; J1650; J1790; J1885; J2370; J2405; J2704; J3010; J7030; J7120; Q9967

== ENCOUNTER 2021-10-10 12:42 | Emergency (ER) | payer SELFPAY ==
[~2021-10-10] VITALS: Ht 172.7 cm; Wt 77.1 kg
[~2021-10-10 12:42] MED LIST changes: +CYMBALTA30 M2 PO; +HYDACE10B PO
== END 2021-10-10 17:14 | disposition home or self-care (01) ==
LOC: ER 12:42
DX: U07.1 COVID-19 (principal); Z88.1 Allergy status to other antibiotic agents; Z91.040 Latex allergy status; Z88.0 Allergy status to penicillin; Z88.2 Allergy status to sulfonamides; Z88.8 Allergy status to other drugs, medicaments and biological substances; Z91.048 Other nonmedicinal substance allergy status; Z79.899 Other long term (current) drug therapy; Z85.038 Personal history of other malignant neoplasm of large intestine
CPT/HCPCS: 36415; A9270